=== PATIENT | female | born 1935 | race Caucasian/White ===

== ENCOUNTER 2018-11-05 14:36 | Inpatient (IN) | payer MEDICARE, BC ==
[~2018-11-05] VITALS: Ht 152.4 cm; Wt 47.2 kg
[~2018-11-05 14:36] MED LIST: ALBU6.7H IH; BUDE10.2 IH; ESOM40CA PO
[2018-11-05] MEDS ORDERED: ALBUTEROL SULFATE 8 GM HFA.AER.AD IH SCH (17:30)
[2018-11-05] MEDS ORDERED: BISACODYL 10 MG SUPP.RECT RC PRN (17:45)
[2018-11-05] MEDS ORDERED: SENNOSIDES 1 TABLET PO PRN ×2 (17:45→20:00)
[2018-11-05] MEDS ORDERED: MIRALAX 17 GM POWD.PACK PO PRN ×2 (17:45→20:00)
[2018-11-05] MEDS ORDERED: ACETAMINOPHEN 325 MG TABLET PO PRN ×2 (17:45→20:00)
[2018-11-05] MEDS ORDERED: ONDANSETRON 4 MG/2 ML VIAL IM PRN (17:45)
[2018-11-05] MEDS ORDERED: BENZONATATE 100 MG CAPSULE PO SCH (17:45)
[2018-11-05] MEDS ORDERED: GUAIFENESIN SUGAR FREE 100 MG/5 ML UDC PO PRN ×2 (17:45→20:30)
[2018-11-05] MEDS ORDERED: BENZ200C53 PO (18:40)
[2018-11-05] MEDS ORDERED: ACET-2154 PO (18:40)
[2018-11-05] MEDS ORDERED: DOCU100C36 PO (18:40)
[2018-11-05] MEDS ORDERED: BISA10SU61 RC (18:40)
[2018-11-05] MEDS ORDERED: PANT40TA4 PO (19:06)
[2018-11-05] MEDS ORDERED: OXYB10TA PO (19:06)
[2018-11-05] MEDS ORDERED: SERT50TA PO (19:06)
[2018-11-05] MEDS ORDERED: HEPA500034 SUBCUT (19:06)
[2018-11-05] MEDS ORDERED: LEVO50TA8 PO (19:06)
[2018-11-05] MEDS ORDERED: GUAI-671 PO (19:06)
[2018-11-05] MEDS ORDERED: SENN-18 PO (19:06)
[2018-11-05] MEDS ORDERED: POLY17PO4 PO (19:06)
[2018-11-05] MEDS ORDERED: ONDA4TAB5 IM (19:06)
[2018-11-05 19:30] VITALS: BP 148/67
[2018-11-05] MEDS ORDERED: ONDANSETRON HCL 4 MG TABLET PO SCH (20:00)
[2018-11-05] MEDS ORDERED: BENZONATATE 100 MG CAPSULE PO PRN (20:00)
[2018-11-05] MEDS ORDERED: BISACODYL 10 MG SUPP.RECT RC SCH (20:00)
[2018-11-05] MEDS ORDERED: ONDA4VIA52 IV (20:10)
[2018-11-05] MEDS ORDERED: ONDANSETRON 4 MG/2 ML VIAL IV PRN (20:15)
[2018-11-05] MEDS ORDERED: GUAIFENESIN/CODEINE 5 ML LIQUID UDC PO PRN (20:15)
[2018-11-05] MEDS ORDERED: GUAI100S9 PO (20:18)
[2018-11-05] MEDS: HEPARIN SODIUM,PORCINE 5,000 UNITS/ML VIAL SQ SCH (20:46)
[2018-11-05] MEDS ORDERED: HEPARIN SODIUM,PORCINE/PF 100 UNIT/ML, 5ML SYR XX SCH (21:00)
[2018-11-05 21:10] VITALS: BP 145/58
[2018-11-06] MEDS: LEVOTHYROXINE SODIUM 50 MCG TABLET PO SCH (06:14)
[2018-11-06 06:59] VITALS: BP 146/67
[2018-11-06] MEDS ORDERED: PANTOPRAZOLE SODIUM 40 MG TABLET.DR PO SCH (07:00)
[2018-11-06] MEDS ORDERED: LEVOTHYROXINE SODIUM 50 MCG TABLET PO SCH (07:00)
[2018-11-06 08:04] VITALS: BP 150/49
[2018-11-06] MEDS ORDERED: DOCUSATE SODIUM 100 MG CAPSULE PO SCH (09:00)
[2018-11-06] MEDS ORDERED: SERTRALINE HCL 100 MG TABLET PO SCH (09:00)
[2018-11-06] MEDS ORDERED: Medication Not On Formulary EA (Esomeprazole Mag Trihydrate (Nexium) 40 MG) PO SCH (09:00)
[2018-11-06] MEDS ORDERED: OXYBUTYNIN XL 5 MG TABSR PO SCH (09:00)
[2018-11-06] MEDS ORDERED: SERTRALINE HCL 50 MG TABLET PO SCH (09:00)
[2018-11-06] MEDS: PANTOPRAZOLE SODIUM 40 MG TABLET.DR PO SCH (09:54)
[2018-11-06] MEDS: OXYBUTYNIN XL 5 MG TABSR PO SCH (09:54)
[2018-11-06] MEDS: SERTRALINE HCL 100 MG TABLET PO SCH (09:55)
[2018-11-06] MEDS: HEPARIN SODIUM,PORCINE 5,000 UNITS/ML VIAL SQ SCH ×2 (10:01→20:58)
[2018-11-06] MEDS: BENZONATATE 100 MG CAPSULE PO SCH ×3 (10:18→21:25)
[2018-11-06] MEDS: LIDOCAINE VISCUS 2% 15 ML UDC MM SCH ×3 (10:22→21:26)
[2018-11-06 18:05] VITALS: BP 146/51
[2018-11-06 21:15] VITALS: BP 134/42
[2018-11-07 05:00] VITALS: BP 160/54
[2018-11-07] MEDS: BENZONATATE 100 MG CAPSULE PO SCH ×3 (06:17→21:23)
[2018-11-07] MEDS: LIDOCAINE VISCUS 2% 15 ML UDC MM SCH ×3 (06:17→21:23)
[2018-11-07] MEDS: LEVOTHYROXINE SODIUM 50 MCG TABLET PO SCH (06:17)
[2018-11-07 07:47] VITALS: BP 163/58
[2018-11-07] MEDS: PANTOPRAZOLE SODIUM 40 MG TABLET.DR PO SCH (08:05)
[2018-11-07] MEDS: OXYBUTYNIN XL 5 MG TABSR PO SCH (08:07)
[2018-11-07] MEDS: SERTRALINE HCL 100 MG TABLET PO SCH (08:07)
[2018-11-07] MEDS: HEPARIN SODIUM,PORCINE 5,000 UNITS/ML VIAL SQ SCH ×2 (08:16→20:46)
[2018-11-07 16:26] VITALS: BP 147/50
[2018-11-07 19:58] VITALS: BP 126/60
[2018-11-07] MEDS ORDERED: LIDOCAINE VISCUS 2% 15 ML UDC ONE (20:43)
[2018-11-08 04:50] VITALS: BP 170/73
[2018-11-08] MEDS: LIDOCAINE VISCUS 2% 15 ML UDC MM SCH ×3 (06:00→21:01)
[2018-11-08] MEDS: BENZONATATE 100 MG CAPSULE PO SCH ×3 (06:23→21:01)
[2018-11-08] MEDS: LEVOTHYROXINE SODIUM 50 MCG TABLET PO SCH (06:23)
[2018-11-08] MEDS: PANTOPRAZOLE SODIUM 40 MG TABLET.DR PO SCH (06:25)
[2018-11-08] MEDS: hydrALAZINE HCL 25 MG TABLET PO PRN (06:56)
[2018-11-08 07:53] LABS: BASOPHILS % (AUTO) 0.6 % (0.0-2.0); EOSINOPHILS # (AUTO) 0.3 K/uL (0.0-0.7); HEMATOCRIT 31.3 % (31.2-41.9); HEMOGLOBIN 10.2 g/dL (10.9-14.3); LYMPHOCYTES % (AUTO) 16.8 % (20.5-51.5); MEAN CORPUSCULAR HEMOGLOBIN 26.6 uug (24.7-32.8); MEAN CORPUSCULAR HGB CONC 33 g/dL (32.3-35.6); MEAN CORPUSCULAR VOLUME 81.6 fL (75.5-95.3); MONOCYTES # (AUTO) 0.6 K/uL (2.0-10.0); MONOCYTES % (AUTO) 9.7 % (0.0-11.0); NEUTROPHILS # (AUTO) 3.9 K/uL (1.8-8.9); NEUTROPHILS % (AUTO) 67.9 % (38.5-71.5); PLATELET COUNT (AUTO) 282 K/uL (179-408); RED BLOOD CELL COUNT(AUTO) 3.84 MIL/uL (3.63-4.92); WHITE BLOOD COUNT (AUTO) 5.8 K/uL (3.8-11.8)
[2018-11-08 08:00] VITALS: BP 138/73
[2018-11-08 08:13] LABS: CARBON DIOXIDE 26 mmol/L (21-32); CHLORIDE 108 mmol/L (98-107); CREATININE 0.6 mg/dL (0.6-1.3); GLUCOSE 104 mg/dL (74-106); MAGNESIUM 2.1 mg/dL (1.8-2.4); PHOSPHOROUS 3.4 mg/dL (2.5-4.9); UREA NITROGEN, BLOOD 18 mg/dL (7-18)
[2018-11-08] MEDS: HEPARIN SODIUM,PORCINE 5,000 UNITS/ML VIAL SQ SCH ×2 (08:59→20:58)
[2018-11-08] MEDS: SERTRALINE HCL 100 MG TABLET PO SCH (09:30)
[2018-11-08] MEDS: OXYBUTYNIN XL 5 MG TABSR PO SCH (09:30)
[2018-11-08 16:15] VITALS: BP 132/63
[2018-11-08 21:20] VITALS: BP 111/54
[2018-11-09 06:09] VITALS: BP 160/76
[2018-11-09] MEDS: hydrALAZINE HCL 25 MG TABLET PO PRN (06:24)
[2018-11-09] MEDS: BENZONATATE 100 MG CAPSULE PO SCH ×3 (06:24→21:07)
[2018-11-09] MEDS: LIDOCAINE VISCUS 2% 15 ML UDC MM SCH ×2 (06:24→14:45)
[2018-11-09] MEDS: LEVOTHYROXINE SODIUM 50 MCG TABLET PO SCH (06:24)
[2018-11-09 07:30] VITALS: BP 109/44
[2018-11-09] MEDS: HEPARIN SODIUM,PORCINE 5,000 UNITS/ML VIAL SQ SCH ×2 (08:30→21:12)
[2018-11-09] MEDS: SERTRALINE HCL 100 MG TABLET PO SCH (08:33)
[2018-11-09] MEDS: PANTOPRAZOLE SODIUM 40 MG TABLET.DR PO SCH (08:33)
[2018-11-09] MEDS: OXYBUTYNIN XL 5 MG TABSR PO SCH (08:34)
[2018-11-09] MEDS: ARIPIPRAZOLE 2 MG TABLET PO SCH (11:59)
[2018-11-09 17:06] VITALS: BP 115/49
[2018-11-09] MEDS ORDERED: LIDOCAINE VISCUS 2% 15 ML UDC MM PRN (19:45)
[2018-11-09 20:23] VITALS: BP 130/54
[2018-11-10] MEDS: BENZONATATE 100 MG CAPSULE PO SCH ×3 (05:57→21:00)
[2018-11-10] MEDS: PANTOPRAZOLE SODIUM 40 MG TABLET.DR PO SCH (06:00)
[2018-11-10] MEDS: LEVOTHYROXINE SODIUM 50 MCG TABLET PO SCH (06:00)
[2018-11-10 06:29] VITALS: BP 133/58
[2018-11-10 08:37] VITALS: BP 150/61
[2018-11-10] MEDS: SERTRALINE HCL 100 MG TABLET PO SCH (08:48)
[2018-11-10] MEDS: OXYBUTYNIN XL 5 MG TABSR PO SCH (08:48)
[2018-11-10] MEDS: ARIPIPRAZOLE 2 MG TABLET PO SCH (08:48)
[2018-11-10] MEDS: HEPARIN SODIUM,PORCINE 5,000 UNITS/ML VIAL SQ SCH ×2 (08:56→20:51)
[2018-11-10 16:54] VITALS: BP 114/41
[2018-11-10 20:43] VITALS: BP 135/56
[2018-11-11] MEDS: LEVOTHYROXINE SODIUM 50 MCG TABLET PO SCH (06:02)
[2018-11-11] MEDS: BENZONATATE 100 MG CAPSULE PO SCH ×3 (06:02→21:31)
[2018-11-11] MEDS: PANTOPRAZOLE SODIUM 40 MG TABLET.DR PO SCH (06:03)
[2018-11-11 06:30] VITALS: BP 141/70
[2018-11-11 07:54] VITALS: BP 146/52
[2018-11-11 08:14] LABS: BASOPHILS % (AUTO) 0.8 % (0.0-2.0); EOSINOPHILS # (AUTO) 0.2 K/uL (0.0-0.7); HEMATOCRIT 32.2 % (31.2-41.9); HEMOGLOBIN 10.4 g/dL (10.9-14.3); LYMPHOCYTES # (AUTO) 1.1 K/uL (20.0-40.0); LYMPHOCYTES % (AUTO) 20.3 % (20.5-51.5); MEAN CORPUSCULAR HEMOGLOBIN 26.4 uug (24.7-32.8); MEAN CORPUSCULAR HGB CONC 32 g/dL (32.3-35.6); MEAN CORPUSCULAR VOLUME 81.9 fL (75.5-95.3); MONOCYTES # (AUTO) 0.4 K/uL (2.0-10.0); MONOCYTES % (AUTO) 7.2 % (0.0-11.0); NEUTROPHILS # (AUTO) 3.6 K/uL (1.8-8.9); NEUTROPHILS % (AUTO) 68.7 % (38.5-71.5); PLATELET COUNT (AUTO) 319 K/uL (179-408); RED BLOOD CELL COUNT(AUTO) 3.93 MIL/uL (3.63-4.92); WHITE BLOOD COUNT (AUTO) 5.2 K/uL (3.8-11.8)
[2018-11-11 08:23] LABS: CARBON DIOXIDE 28 mmol/L (21-32); CHLORIDE 107 mmol/L (98-107); CREATININE 0.7 mg/dL (0.6-1.3); GLUCOSE 107 mg/dL (74-106); POTASSIUM 4.4 mmol/L (3.5-5.1); UREA NITROGEN, BLOOD 20 mg/dL (7-18)
[2018-11-11] MEDS: OXYBUTYNIN XL 5 MG TABSR PO SCH (08:36)
[2018-11-11] MEDS: SERTRALINE HCL 100 MG TABLET PO SCH (08:36)
[2018-11-11] MEDS: ARIPIPRAZOLE 2 MG TABLET PO SCH (08:36)
[2018-11-11] MEDS: HEPARIN SODIUM,PORCINE 5,000 UNITS/ML VIAL SQ SCH ×2 (08:37→21:31)
[2018-11-11 16:23] VITALS: BP 104/33
[2018-11-11 20:37] VITALS: BP 142/61
[2018-11-12 05:58] VITALS: BP 140/66
[2018-11-12] MEDS: PANTOPRAZOLE SODIUM 40 MG TABLET.DR PO SCH (06:24)
[2018-11-12] MEDS: BENZONATATE 100 MG CAPSULE PO SCH ×3 (06:24→21:18)
[2018-11-12] MEDS: LEVOTHYROXINE SODIUM 50 MCG TABLET PO SCH (06:24)
[2018-11-12 07:30] VITALS: BP 139/55
[2018-11-12] MEDS: HEPARIN SODIUM,PORCINE 5,000 UNITS/ML VIAL SQ SCH ×2 (09:18→20:24)
[2018-11-12] MEDS: SERTRALINE HCL 100 MG TABLET PO SCH (09:21)
[2018-11-12] MEDS: ARIPIPRAZOLE 2 MG TABLET PO SCH (09:21)
[2018-11-12] MEDS: OXYBUTYNIN XL 5 MG TABSR PO SCH (09:21)
[2018-11-12 15:00] VITALS: BP 149/52
[2018-11-12 19:39] VITALS: BP 110/41
[2018-11-13 05:42] VITALS: BP 132/70
[2018-11-13] MEDS: BENZONATATE 100 MG CAPSULE PO SCH ×3 (05:43→21:29)
[2018-11-13] MEDS: LEVOTHYROXINE SODIUM 50 MCG TABLET PO SCH (06:20)
[2018-11-13] MEDS: PANTOPRAZOLE SODIUM 40 MG TABLET.DR PO SCH (06:21)
[2018-11-13 08:00] VITALS: BP 148/64
[2018-11-13] MEDS: SERTRALINE HCL 100 MG TABLET PO SCH (08:53)
[2018-11-13] MEDS: ARIPIPRAZOLE 2 MG TABLET PO SCH (08:53)
[2018-11-13] MEDS: OXYBUTYNIN XL 5 MG TABSR PO SCH (08:54)
[2018-11-13] MEDS: HEPARIN SODIUM,PORCINE 5,000 UNITS/ML VIAL SQ SCH ×2 (09:00→20:12)
[2018-11-13 17:10] VITALS: BP 95/37
[2018-11-13 20:00] VITALS: BP 124/51
[2018-11-14 06:20] VITALS: BP 125/63
[2018-11-14] MEDS: PANTOPRAZOLE SODIUM 40 MG TABLET.DR PO SCH (06:20)
[2018-11-14] MEDS: BENZONATATE 100 MG CAPSULE PO SCH ×3 (06:20→21:26)
[2018-11-14] MEDS: LEVOTHYROXINE SODIUM 50 MCG TABLET PO SCH (06:20)
[2018-11-14] MEDS: ARIPIPRAZOLE 2 MG TABLET PO SCH (08:50)
[2018-11-14] MEDS: SERTRALINE HCL 100 MG TABLET PO SCH (08:50)
[2018-11-14] MEDS: OXYBUTYNIN XL 5 MG TABSR PO SCH (08:51)
[2018-11-14] MEDS: HEPARIN SODIUM,PORCINE 5,000 UNITS/ML VIAL SQ SCH (08:56)
[2018-11-14 09:00] VITALS: BP 143/57
[2018-11-14 20:09] VITALS: BP 113/48
[2018-11-15 05:52] VITALS: BP 137/55
[2018-11-15] MEDS: BENZONATATE 100 MG CAPSULE PO SCH ×2 (06:12→14:44)
[2018-11-15] MEDS: LEVOTHYROXINE SODIUM 50 MCG TABLET PO SCH (06:12)
[2018-11-15] MEDS: PANTOPRAZOLE SODIUM 40 MG TABLET.DR PO SCH (06:12)
[2018-11-15] MEDS: ARIPIPRAZOLE 2 MG TABLET PO SCH (08:30)
[2018-11-15] MEDS: SERTRALINE HCL 100 MG TABLET PO SCH (08:32)
[2018-11-15 08:52] VITALS: BP 125/49
[2018-11-15] MEDS ORDERED: OXYBUTYNIN XL 5 MG TABSR PO SCH (09:00)
[2018-11-15 16:22] VITALS: BP 112/41
== END 2018-11-15 15:30 | disposition home health service (06) | DRG 92 ==
PROVIDERS: ADMIT Physical Medicine & Rehabilitation Pain Medicine; ATTEND Physical Medicine & Rehabilitation Pain Medicine
DX: G92 Toxic encephalopathy (principal); F33.2 Major depressive disorder, recurrent severe without psychotic features; E03.9 Hypothyroidism, unspecified; G20 Parkinson's disease; R62.7 Adult failure to thrive; R47.1 Dysarthria and anarthria; R26.9 Unspecified abnormalities of gait and mobility; D86.0 Sarcoidosis of lung; Z87.440 Personal history of urinary (tract) infections; K59.00 Constipation, unspecified; Z91.81 History of falling; R29.6 Repeated falls; Z79.899 Other long term (current) drug therapy; R35.1 Nocturia; Z88.0 Allergy status to penicillin; Z88.2 Allergy status to sulfonamides
CPT/HCPCS: 36415; 70030-TC; 83735; 84100; 84443; 84480; 85025; 92523; 93005; 97110; 97112; 97116; 97165; 97530; 97535; J1644

== ENCOUNTER 2019-07-19 16:47 | Inpatient (IN) | payer MEDICARE, BC ==
[~2019-07-19] VITALS: Ht 154.9 cm; Wt 52.3 kg
[2019-07-19 17:33] LABS: BASOPHILS % (AUTO) 0.3 % (0.0-2.0); EOSINOPHILS % (AUTO) 0.2 % (0.0-7.0); HEMATOCRIT 32.8 % (31.2-41.9); HEMOGLOBIN 10.9 g/dL (10.9-14.3); LYMPHOCYTES # (AUTO) 0.5 K/uL (20.0-40.0); LYMPHOCYTES % (AUTO) 8.6 % (20.5-51.5); MEAN CORPUSCULAR HEMOGLOBIN 27.3 uug (24.7-32.8); MEAN CORPUSCULAR HGB CONC 33 g/dL (32.3-35.6); MEAN CORPUSCULAR VOLUME 82.5 fL (75.5-95.3); MONOCYTES # (AUTO) 0.5 K/uL (2.0-10.0); NEUTROPHILS # (AUTO) 4.7 K/uL (1.8-8.9); NEUTROPHILS % (AUTO) 81.9 % (38.5-71.5); PLATELET COUNT (AUTO) 133 K/uL (179-408); RED BLOOD CELL COUNT(AUTO) 3.98 MIL/uL (3.63-4.92); WHITE BLOOD COUNT (AUTO) 5.7 K/uL (3.8-11.8)
[2019-07-19 17:35] LABS: POTASSIUM 4.5 mmol/L (3.5-5.1)
[2019-07-19 17:39] LABS: BILIRUBIN,DIRECT 0.1 mg/dL (0.0-0.2); BILIRUBIN,TOTAL 0.3 mg/dL (0.2-1.0); CREATININE 0.9 mg/dL (0.6-1.3); TOTAL PROTEIN, SERUM 7.1 g/dL (6.4-8.2)
--- NOTE | 2019-07-19 17:47 | NUR ---
PT IS IN ROOM #1A. DR OCHOA EVALUATED THE PT.
[2019-07-19] MEDS ORDERED: ACETAMINOPHEN 325 MG TABLET PO ONE (19:00)
[2019-07-19] MEDS ORDERED: OSELTAMIVIR PHOSPHATE 75 MG CAPSULE PO ONE (19:00)
[2019-07-19] MEDS ORDERED: ACETAMINOPHEN ES 500 MG TABLET ONE (19:10)
[2019-07-19] MEDS ORDERED: OSELTAMIVIR PHOSPHATE 75 MG CAPSULE ONE (19:10)
--- NOTE | 2019-07-19 19:17 | NUR ---
REPORT GIVEN TO JEWEL BLOCKER AND SAWYER VLAD DRISCOLL.
--- NOTE | 2019-07-19 20:20 | NUR ---
Pt. admitted to Tele , under care of Dr. Mena Belongs List completed
[2019-07-19] MEDS ORDERED: BISACODYL 10 MG SUPP.RECT RC SCH (20:30)
[2019-07-19] MEDS ORDERED: ACETAMINOPHEN 325 MG TABLET PO PRN (20:30)
[2019-07-19] MEDS ORDERED: ONDANSETRON 4 MG/2 ML VIAL IV PRN (20:30)
[2019-07-19 20:50] VITALS: BP 125/49
--- NOTE | 2019-07-19 20:50 | NUR ---
RECEIVED PT FROM ER VIA [facility].UNDER THE CARE OF DR. BOYKIN.DX: FLU. PT IN NO ACUTE DISTRESS. IV INTACT. AND DAUGHTER AT BEDSIDE. ADMISSION PROCESS AND CARE PLAN INITIATED. BELONGING LIST DONE. SAFETY AND COMFORT PROVIDED. WILL CONTINUE TO MONITOR.
[2019-07-19] MEDS ORDERED: ACETAMINOPHEN ES 500 MG TABLET PO ONE (21:00)
[2019-07-19] MEDS: IV 1/2NS 1000 ML 1,000 ML IV PRN (21:34)
[2019-07-19] MEDS: FAMOTIDINE 20 MG TABLET PO SCH (21:41)
[2019-07-19] MEDS: MIRTAZAPINE 15 MG TABLET PO SCH (21:41)
[2019-07-20 00:05] VITALS: BP 114/49
[2019-07-20 03:57] VITALS: BP 109/43
[2019-07-20] MEDS: LEVOTHYROXINE SODIUM 50 MCG TABLET PO SCH (06:39)
--- NOTE | 2019-07-20 06:44 | NUR ---
PT SLEPT COMFORTABLE. PT IN NO ACUTE DISTRESS. IV INTACT. PRESCRIBED MEDICATION GIVEN AND PT TOLERATED IT WELL. PT ASSISTED TO THE BATHROOM . SAFETY AND COMFORT PROVIDED. ALL NEEDS ARE MET. WILL ENDORSE TO INCOMING NURSE FOR CONTINUITY OF CARE.
[2019-07-20 07:07] LABS: BASOPHILS % (AUTO) 0.2 % (0.0-2.0); EOSINOPHILS % (AUTO) 0.5 % (0.0-7.0); HEMATOCRIT 31.9 % (31.2-41.9); HEMOGLOBIN 10.6 g/dL (10.9-14.3); LYMPHOCYTES # (AUTO) 0.7 K/uL (20.0-40.0); LYMPHOCYTES % (AUTO) 11.7 % (20.5-51.5); MEAN CORPUSCULAR HEMOGLOBIN 27.5 uug (24.7-32.8); MEAN CORPUSCULAR HGB CONC 33 g/dL (32.3-35.6); MEAN CORPUSCULAR VOLUME 82.7 fL (75.5-95.3); MONOCYTES # (AUTO) 0.5 K/uL (2.0-10.0); MONOCYTES % (AUTO) 9.5 % (0.0-11.0); NEUTROPHILS # (AUTO) 4.5 K/uL (1.8-8.9); NEUTROPHILS % (AUTO) 78.1 % (38.5-71.5); PLATELET COUNT (AUTO) 116 K/uL (179-408); RED BLOOD CELL COUNT(AUTO) 3.86 MIL/uL (3.63-4.92); WHITE BLOOD COUNT (AUTO) 5.7 K/uL (3.8-11.8)
[2019-07-20] MEDS ORDERED: BISACODYL 10 MG SUPP.RECT RC PRN (07:45)
[2019-07-20 08:25] LABS: CREATININE 0.8 mg/dL (0.6-1.3); MAGNESIUM 2.1 mg/dL (1.8-2.4); TOTAL PROTEIN, SERUM 6.7 g/dL (6.4-8.2)
[2019-07-20 08:56] LABS: BILIRUBIN,TOTAL 0.3 mg/dL (0.2-1.0); POTASSIUM 4.1 mmol/L (3.5-5.1)
[2019-07-20] MEDS: SERTRALINE HCL 100 MG TABLET PO SCH (10:26)
[2019-07-20] MEDS: OSELTAMIVIR PHOSPHATE 75 MG CAPSULE PO SCH ×2 (10:26→21:28)
[2019-07-20] MEDS: DOCUSATE SODIUM 100 MG CAPSULE PO SCH ×2 (10:26→21:28)
[2019-07-20 11:38] VITALS: BP 118/55
[2019-07-20 15:27] VITALS: BP 107/56
--- NOTE | 2019-07-20 16:00 | NUR ---
SPOKE TO DR. BOYKIN TO CALL PATIENT'S DAUGHTER SABRINA [phone], REGARDING PATIENT CONDITION
[2019-07-20] MEDS ORDERED: ALBUTEROL SULFATE 2.5 MG/3 ML NEBU NEB PRN (16:45)
[2019-07-20] MEDS: AZITHROMYCIN IV 500 MG in IV DEXTROSE 5% 250 ML IV SCH (17:00)
[2019-07-20] MEDS: IV 1/2NS 1000 ML 1,000 ML IV PRN (18:15)
--- NOTE | 2019-07-20 18:56 | NUR ---
PATIENT IN BED KEPT CLEAN AND DRY AT ALL TIMES, NO SOB NOTED AND NO PAIN NOTED AT THIS TIME. CALL LIGHT WITHIN REACH. WILL CONTINUE TO MONITOR.
--- NOTE | 2019-07-20 19:30 | NUR ---
RECEIVED PT AWAKE,ALERT AND ORIENTEDX4. PT IV INTACT. FAMILY AT BEDSIDE. SAFETY AND COMFORT PROVIDED. WILL CONTINUE TO MONITOR.
[2019-07-20 21:03] VITALS: BP 127/45
[2019-07-20] MEDS: MIRTAZAPINE 15 MG TABLET PO SCH (21:28)
[2019-07-20] MEDS: FAMOTIDINE 20 MG TABLET PO SCH (21:28)
[2019-07-20 22:27] LABS: *BILIRUBIN,URIN NEGATIVE (NEGATIVE); *BLOOD, URINE NEGATIVE (NEGATIVE); *COLOR,URINE YELLOW (YELLOW); *KETONES,URINE NEGATIVE (NEGATIVE); *UROBILINOGEN,URINE 0.2 E.U./dl (NORMAL); LEUKOCYTE ESTERASE ,URINE NEGATIVE (NEGATIVE); NITRITE, URINE POSITIVE (NEGATIVE); PH,URINE 5.5 (5.0-8.0); UGLUCOSE NEGATIVE (NEGATIVE)
[2019-07-20 22:40] LABS: *CLARITY,URINE HAZY (CLEAR)
[2019-07-20 23:31] LABS: BACTERIA,URINE MANY /HPF (NONE SEEN); RBC,URINE 0-3 /HPF (0-3); SQUAMOUS EPITHELIAL CELL,UR FEW /HPF (NONE SEEN)
[2019-07-21 04:18] VITALS: BP 145/59
--- NOTE | 2019-07-21 06:20 | NUR ---
PT SLEPT INTERMITTENTLY. PRESCRIBED MEDICATION GIVEN AND PT TOLERATED IT WELL. SAFETY AND COMFORT PROVIDED. WILL ENDORSE TO INCOMING NURSE FOR CONTINUITY OF CARE.
[2019-07-21] MEDS: LEVOTHYROXINE SODIUM 50 MCG TABLET PO SCH (06:37)
[2019-07-21 07:03] LABS: BASOPHILS % (AUTO) 0.5 % (0.0-2.0); EOSINOPHILS % (AUTO) 0.4 % (0.0-7.0); HEMATOCRIT 33.6 % (31.2-41.9); HEMOGLOBIN 11.2 g/dL (10.9-14.3); LYMPHOCYTES # (AUTO) 0.8 K/uL (20.0-40.0); LYMPHOCYTES % (AUTO) 18.1 % (20.5-51.5); MEAN CORPUSCULAR HEMOGLOBIN 27.5 uug (24.7-32.8); MEAN CORPUSCULAR HGB CONC 33 g/dL (32.3-35.6); MEAN CORPUSCULAR VOLUME 82.7 fL (75.5-95.3); MONOCYTES # (AUTO) 0.5 K/uL (2.0-10.0); MONOCYTES % (AUTO) 10.1 % (0.0-11.0); NEUTROPHILS # (AUTO) 3.2 K/uL (1.8-8.9); NEUTROPHILS % (AUTO) 70.9 % (38.5-71.5); PLATELET COUNT (AUTO) 122 K/uL (179-408); RED BLOOD CELL COUNT(AUTO) 4.06 MIL/uL (3.63-4.92); WHITE BLOOD COUNT (AUTO) 4.5 K/uL (3.8-11.8)
[2019-07-21 07:21] LABS: BILIRUBIN,TOTAL 0.3 mg/dL (0.2-1.0); CREATININE 0.7 mg/dL (0.6-1.3); PHOSPHOROUS 3.1 mg/dL (2.5-4.9); POTASSIUM 4.2 mmol/L (3.5-5.1); TOTAL PROTEIN, SERUM 6.7 g/dL (6.4-8.2)
[2019-07-21 07:26] LABS: THYROID STIMULATING HORMONE 1.089 mIU/mL (0.358-3.740)
[2019-07-21] MEDS: SERTRALINE HCL 100 MG TABLET PO SCH (08:01)
[2019-07-21] MEDS: DOCUSATE SODIUM 100 MG CAPSULE PO SCH ×2 (08:01→20:39)
[2019-07-21] MEDS: OSELTAMIVIR PHOSPHATE 75 MG CAPSULE PO SCH ×2 (08:01→20:39)
[2019-07-21] MEDS: IV 1/2NS 1000 ML 1,000 ML IV PRN (11:00)
[2019-07-21 11:49] VITALS: BP 139/50
[2019-07-21 15:33] VITALS: BP 111/48
[2019-07-21] MEDS: AZITHROMYCIN IV 500 MG in IV DEXTROSE 5% 250 ML IV SCH (16:06)
[2019-07-21 16:53] LABS: *BILIRUBIN,URIN NEGATIVE (NEGATIVE); *BLOOD, URINE NEGATIVE (NEGATIVE); *CLARITY,URINE CLEAR (CLEAR); *COLOR,URINE YELLOW (YELLOW); *KETONES,URINE NEGATIVE (NEGATIVE); *UROBILINOGEN,URINE 0.2 E.U./dl (NORMAL); LEUKOCYTE ESTERASE ,URINE NEGATIVE (NEGATIVE); NITRITE, URINE POSITIVE (NEGATIVE); PH,URINE 5.5 (5.0-8.0); UGLUCOSE NEGATIVE (NEGATIVE)
[2019-07-21 16:58] LABS: RBC,URINE 0-3 /HPF (0-3); WBC,URINE 0-3 /HPF (0-3)
[2019-07-21 16:59] LABS: BACTERIA,URINE MANY /HPF (NONE SEEN); SQUAMOUS EPITHELIAL CELL,UR FEW /HPF (NONE SEEN)
--- NOTE | 2019-07-21 19:30 | NUR ---
Received patient awake and alert up in chair, A/ox3. Daughter is at bedside. No signs of acute distress noted. no complaints of pain or SOB. Vitals are WNL. IVF running on the left forearm, no s/s of infection or infiltration noted. Patient on droplet precaution for influenza. Safety measures initiated. Bed is low and locked, call light within reach. Will continue to monitor.
[2019-07-21 20:00] VITALS: BP 133/52
[2019-07-21] MEDS: MIRTAZAPINE 15 MG TABLET PO SCH (20:39)
[2019-07-21] MEDS: FAMOTIDINE 20 MG TABLET PO SCH (20:39)
[2019-07-22 04:54] VITALS: BP 115/45
[2019-07-22] MEDS: IV 1/2NS 1000 ML 1,000 ML IV PRN ×2 (04:57→20:52)
--- NOTE | 2019-07-22 06:09 | NUR ---
Patient slept well throughout the night. Vitals WNL. No fevers. Medication given as ordered and tolerated well. IVF running on the left forearm, no s/s of infection or infiltration noted. Safety measures given. Will endorse to next shift.
[2019-07-22] MEDS: LEVOTHYROXINE SODIUM 50 MCG TABLET PO SCH (06:34)
[2019-07-22] MEDS: SERTRALINE HCL 100 MG TABLET PO SCH (08:00)
[2019-07-22] MEDS: DOCUSATE SODIUM 100 MG CAPSULE PO SCH ×2 (08:00→20:09)
[2019-07-22] MEDS: OSELTAMIVIR PHOSPHATE 75 MG CAPSULE PO SCH ×2 (08:05→20:06)
[2019-07-22 11:40] VITALS: BP 120/51
[2019-07-22 15:39] VITALS: BP 126/67
[2019-07-22] MEDS ORDERED: AZITHROMYCIN 250 MG TABLET PO SCH (17:00)
[2019-07-22 19:44] VITALS: BP 133/49
[2019-07-22] MEDS: FAMOTIDINE 20 MG TABLET PO SCH (20:06)
[2019-07-22] MEDS: MIRTAZAPINE 15 MG TABLET PO SCH (20:06)
[2019-07-23 04:31] VITALS: BP 136/69
[2019-07-23] MEDS ORDERED: LEVOTHYROXINE SODIUM 75 MCG TABLET PO SCH (07:00)
[2019-07-23] MEDS: DOCUSATE SODIUM 100 MG CAPSULE PO SCH (09:00)
[2019-07-23] MEDS: SERTRALINE HCL 100 MG TABLET PO SCH (09:41)
[2019-07-23] MEDS: OSELTAMIVIR PHOSPHATE 75 MG CAPSULE PO SCH (09:41)
[2019-07-23 11:30] VITALS: BP 149/54
[2019-07-23] MEDS: IV 1/2NS 1000 ML 1,000 ML IV PRN (12:05)
--- NOTE | 2019-07-23 14:07 | NUR ---
PATIENT DISCHARGED TO HOME-SELF CARE. DISCHARGE INSTRUCTIONS WENT OVER WITH PATIENT AND . RX CALLED IN TO [facility] BY DR. HOPPER. [facility] LIST VENT OVER WITH PATIENT AND SIGNED. PATIENT LEFT VIA WC TO [employer] CAR OF HER . PATIENT LEFT IN STABLE CONDITION. IV TAKEN OUT, ARM BAND TAKEN OFF. Addendum: 07/23/19 at 1412 by MELISSA KEENE RN RIGHT WRIST SKIN ABRASION INTACT AND HEALING WELL. PATIENT REFUSED PICTURE TO BE TAKEN.
== END 2019-07-23 14:07 | disposition home or self-care (01) | DRG 194 ==
LOC: ER 16:48 → TELE3 20:05 → MEDSURG3 07-20 11:00
PROVIDERS: ADMIT Internal Medicine; ATTEND Internal Medicine
DX: J10.1 Influenza due to other identified influenza virus with other respiratory manifestations (principal); R04.2 Hemoptysis; R47.01 Aphasia; N39.0 Urinary tract infection, site not specified; D86.0 Sarcoidosis of lung; J47.9 Bronchiectasis, uncomplicated; Z88.0 Allergy status to penicillin; K21.9 Gastro-esophageal reflux disease without esophagitis; E03.9 Hypothyroidism, unspecified; Z88.2 Allergy status to sulfonamides; Z90.710 Acquired absence of both cervix and uterus; F32.9 Major depressive disorder, single episode, unspecified; Z87.01 Personal history of pneumonia (recurrent); Z87.891 Personal history of nicotine dependence; D64.9 Anemia, unspecified; I95.1 Orthostatic hypotension; G62.9 Polyneuropathy, unspecified; F03.90 Unspecified dementia, unspecified severity, without behavioral disturbance, psychotic disturbance, mood disturbance, and anxiety; I70.0 Atherosclerosis of aorta
CPT/HCPCS: 36415; 70030-TC; 70450; 71045; 71250; 73502; 83605; 83735; 84100; 84443; 85025; 85730; 86592; 87040; 87086; 87400; 93005; A4663; A9150; G0378; J0456; J3490; J7060; Q0144

== ENCOUNTER 2021-11-18 15:46 | Inpatient (IN) | payer MEDICARE, BC ==
[~2021-11-18] VITALS: Ht 154.9 cm; Wt 49.2 kg
[~2021-11-18 15:46] MED LIST changes: -ALBU6.7H IH; +BISA10SU61 RC; -BUDE10.2 IH; -ESOM40CA PO; +FAMO20TA8 PO; +LEVO500T2 PO; +LEVO50TA8 PO; +MIRT-93 PO; +OMEP20TA20 PO; +SERT100T PO
--- NOTE | 2021-11-18 16:00 | NUR ---
at bedside pt's exam in progresss.
[2021-11-18 16:46] LABS: HEMATOCRIT 35.8 % (31.2-41.9); MEAN CORPUSCULAR HEMOGLOBIN 28.3 uug (24.7-32.8); MEAN CORPUSCULAR VOLUME 86.4 fL (75.5-95.3); PLATELET COUNT (AUTO) 162 K/uL (179-408)
[2021-11-18 17:02] LABS: ALANINE AMINOTRANSFERASE 14 U/L (14-59); ALKALINE PHOSPHATASE 47 U/L (50-136); ASPARTATE AMINOTRANSFERASE 11 U/L (15-37); BILIRUBIN,DIRECT 0.1 mg/dL (0.0-0.2); BILIRUBIN,TOTAL 0.4 mg/dL (0.2-1.0); CARBON DIOXIDE 30 mmol/L (21-32); CHLORIDE 102 mmol/L (98-107); CREATININE 0.9 mg/dL (0.6-1.3); GLUCOSE 111 mg/dL (74-106); LIPASE 53 U/L (73-393); POTASSIUM 4.1 mmol/L (3.5-5.1); TOTAL PROTEIN, SERUM 7.2 g/dL (6.4-8.2); UREA NITROGEN, BLOOD 31 mg/dL (7-18)
--- NOTE | 2021-11-18 17:23 | NUR ---
Patient assisted with diaper changed pt's daughter at bedside.
[2021-11-18] MEDS ORDERED: MULT-594 PO (18:39)
[2021-11-18] MEDS ORDERED: LEVO150T8 PO (18:39)
[2021-11-18] MEDS ORDERED: FERR325T28 PO ×2 (18:39)
[2021-11-18] MEDS ORDERED: BUPR-96 PO (18:39)
[2021-11-18] MEDS ORDERED: CARBIDOPA-LEVO PO (18:39)
[2021-11-18] MEDS ORDERED: FAMO40TA7 PO (18:39)
[2021-11-18] MEDS ORDERED: ACET-73 PO ×2 (18:39)
--- NOTE | 2021-11-18 18:43 | NUR ---
pt's daughter at bedside pt[facility] and does not [facility] for MRSA swabb.
--- NOTE | 2021-11-18 20:13 | NUR ---
report given to Dinora CHU, pt to go to room 314.
--- NOTE | 2021-11-18 20:41 | NUR ---
pt [facility]. VLAD Farias at bedside to receive the pt.
--- NOTE | 2021-11-18 20:42 | NUR ---
Received pt from er via [facility]. Dx: Failure to thrive. Under the care of Tim Schroeder DNP. Belonging list done. Family at bedside. Pt in no acute distress. Iv intact. Admission process and care plan initiated. detention assessment done.Safety and comfort provided. Will continue to monitor.
[2021-11-18 20:53] VITALS: BP 142/79
[2021-11-18 23:19] LABS: *BILIRUBIN,URIN NEGATIVE (NEGATIVE); *BLOOD, URINE NEGATIVE (NEGATIVE); *CLARITY,URINE CLEAR (CLEAR); *COLOR,URINE YELLOW (YELLOW); *KETONES,URINE NEGATIVE (NEGATIVE); *UROBILINOGEN,URINE 0.2 E.U./dl (NORMAL); LEUKOCYTE ESTERASE ,URINE NEGATIVE (NEGATIVE); NITRITE, URINE NEGATIVE (NEGATIVE); UGLUCOSE NEGATIVE (NEGATIVE)
[2021-11-19] MEDS ORDERED: REMEDY ESSENTIAL ZINC PASTE 113 GM TP PRN (02:15)
[2021-11-19] MEDS ORDERED: MAGNESIUM HYDROXIDE 30 ML LIQUID UDC PO PRN (02:15)
[2021-11-19] MEDS: IV D5 1/2 NS 1000 ML 1,000 ML IV PRN ×2 (02:33→16:53)
[2021-11-19] MEDS: ZOLPIDEM 5 MG TABLET PO PRN ×2 (02:33→22:26)
[2021-11-19 04:15] VITALS: BP 120/86
--- NOTE | 2021-11-19 05:45 | NUR ---
Pt slept intermittently. Pt in no acute distress. Iv intact. Prescribed medication given and pt tolerated it well.. Pt trying to get out of the bed .Pt needs reorientation. Ambien prn given to pt for sleep. Safety and comfort provided. All needs are met.Will endorse to incoming nurse for continuity of care.
[2021-11-19] MEDS: PANTOPRAZOLE SODIUM 40 MG TABLET.DR PO SCH (06:14)
--- NOTE | 2021-11-19 07:30 | NUR ---
RECEIVED PATIENT IN BED AWAKE ALERT TO SELF WITH CONFUSSION AND DISORIENTATION TOTALLY DEPENDENT ON NURSES FOR ALL ADL MAXIMUM ASSIST GIVEN FOR ALL ADL ALL NEEDS ANTICIPATED AND SATISFIED ON ROOM AIR WITH NO SHORTNESS OF BREATH CALL LIGHTS AND PERSONAL BELONGINGS ARE WITHIN EASY REACH MADE COMFORTABLE WILL CONTINUE TO OBSERVE.
[2021-11-19] MEDS ORDERED: BISACODYL 10 MG SUPP.RECT RC PRN (10:45)
[2021-11-19 11:34] VITALS: BP 146/70
[2021-11-19] MEDS: CARBIDOPA/LEVODOPA 25-100MG TABLET PO SCH ×2 (12:29→16:49)
[2021-11-19] MEDS ORDERED: CARB1TAB21 PO (12:40)
--- NOTE | 2021-11-19 13:54 | NUR ---
IV SITE LEFT ARM INFILTERATED ATTEMPTED MANY TIMES AND VEIN ROLLS AND UNABLE TO REINSERT MD AWARE WITH ORDER TO INSERT A MIDLINE AND NOTED
[2021-11-19 15:58] VITALS: BP 149/75
--- NOTE | 2021-11-19 17:24 | NUR ---
PATIENT SEEN AND EXAMINED BY DR MCFADDEN WITH NEW ORDERS MD SPOKE WITH PATIENTS DAUGHTER ZOE AND SPOUSE WILLIAM AT LENGTH URINE SAMPLE OBTAINED AND SENT TO THE LAB ORDERED.
[2021-11-19] MEDS: ENSURE WITH FIBER 237 ML LIQUID (CHOCOLATE) PO SCH (18:00)
[2021-11-19 18:06] LABS: *BILIRUBIN,URIN NEGATIVE (NEGATIVE); *BLOOD, URINE NEGATIVE (NEGATIVE); *CLARITY,URINE CLEAR (CLEAR); *COLOR,URINE YELLOW (YELLOW); *KETONES,URINE NEGATIVE (NEGATIVE); *UROBILINOGEN,URINE 0.2 E.U./dl (NORMAL); LEUKOCYTE ESTERASE ,URINE NEGATIVE (NEGATIVE); NITRITE, URINE NEGATIVE (NEGATIVE); PH,URINE 6.5 (5.0-8.0); UGLUCOSE NEGATIVE (NEGATIVE)
--- NOTE | 2021-11-19 18:06 | NUR ---
PER PATIENTS DAUGHTER ZOE PATIENT IS NOT ON [facility] ANYMORE SEE LIST PROVIDED TAKES ONLY WELBUTRIN DR MONTOYA NOTIFIED WITH ORDER TO DISCONTINUE AND NOTED
--- NOTE | 2021-11-19 18:07 | NUR ---
TAKEN BY BED TO RADIOLOGY DEPT FOR CT HEAD ORDERED.
[2021-11-19 18:19] LABS: *URINE TOTAL PROTEIN RANDOM 11.9 mg/dL (<150/24HR)
--- NOTE | 2021-11-19 18:46 | NUR ---
BACK INTO ROOM AWAITING FOR RESULTS FAMILY REMAINS AT HER BEDSIDE.
--- NOTE | 2021-11-19 19:48 | NUR ---
Received pt awake, alert and orientedx3. Family at bedside. Pt IV intact. Pt in no acute distress. Safety and comfort provided. Will continue to monitor.
[2021-11-19 20:46] VITALS: BP 164/67
[2021-11-19] MEDS ORDERED: MIRTAZAPINE 15 MG TABLET PO SCH (21:00)
[2021-11-19] MEDS: ACETAMINOPHEN 325 MG TABLET PO PRN (21:19)
[2021-11-19] MEDS: REMEDY ESSENTIAL ZINC PASTE 113 GM TP SCH (21:19)
--- NOTE | 2021-11-19 21:42 | NUR ---
Tylenol 650 mg prn given to pt as per pt request. Pt tolerated it well. Safety and comfort provided. Will continue to monitor.
[2021-11-19 21:50] VITALS: BP 142/60
--- NOTE | 2021-11-19 22:44 | NUR ---
Ambien 5mg given at 2226H for sleep. Pt tolerated it well. Will continue to monitor.
[2021-11-20] MEDS: ACETAMINOPHEN 325 MG TABLET PO PRN ×2 (03:01→20:32)
--- NOTE | 2021-11-20 03:01 | NUR ---
Tylenol 650 mg prn given to pt as per pt request. Will continue to monitor.
--- NOTE | 2021-11-20 06:02 | NUR ---
Pt slept intermittently. Pt Prescribed medication given and pt tolerated it well. Pt have episodes of forgetfulness, trying to get out of the bed, taking off her hospital gown and diaper. Pt needs reorientation. Iv intact. Safety and comfort provided . All needs are met. Will endorse to incoming nurse for continuity of care.
[2021-11-20] MEDS: IV D5 1/2 NS 1000 ML 1,000 ML IV PRN ×2 (06:20→20:51)
[2021-11-20] MEDS: PANTOPRAZOLE SODIUM 40 MG TABLET.DR PO SCH (06:20)
[2021-11-20 06:26] LABS: HEMATOCRIT 35.9 % (31.2-41.9); MEAN CORPUSCULAR HEMOGLOBIN 28.8 uug (24.7-32.8); PLATELET COUNT (AUTO) 158 K/uL (179-408)
[2021-11-20] MEDS ORDERED: LEVOTHYROXINE SODIUM 75 MCG TABLET PO SCH (07:00)
[2021-11-20] MEDS ORDERED: LEVOTHYROXINE SODIUM 150 MCG TABLET PO SCH (07:00)
[2021-11-20 07:28] LABS: THYROID STIMULATING HORMONE 0.067 mIU/mL (0.358-3.740)
[2021-11-20 07:30] LABS: PHOSPHOROUS 3.4 mg/dL (2.5-4.9)
[2021-11-20 07:41] LABS: BILIRUBIN,TOTAL 0.4 mg/dL (0.2-1.0); CREATININE 0.8 mg/dL (0.6-1.3); POTASSIUM 3.7 mmol/L (3.5-5.1); TOTAL PROTEIN, SERUM 6.9 g/dL (6.4-8.2)
[2021-11-20 07:42] LABS: MAGNESIUM 2.4 mg/dL (1.8-2.4)
--- NOTE | 2021-11-20 08:00 | NUR ---
NSG: Received pt lying in bed, awake, alert and oriented x3 but forgetful. Pt IV intact and ivf running well. Pt in no acute distress. Safety and comfort provided. Will continue to monitor.
[2021-11-20] MEDS: ENSURE WITH FIBER 237 ML LIQUID (CHOCOLATE) PO SCH ×3 (08:42→17:42)
[2021-11-20] MEDS: CARBIDOPA/LEVODOPA 25-100MG TABLET PO SCH ×3 (08:43→17:42)
[2021-11-20] MEDS: buPROPion XL 150 MG TAB.SR.24H PO SCH ×2 (08:43→10:31)
[2021-11-20] MEDS: MULTIVITAMINS,THERAPEUTIC TABLET PO SCH ×2 (08:43→10:31)
[2021-11-20] MEDS: REMEDY ESSENTIAL ZINC PASTE 113 GM TP SCH ×2 (08:44→20:32)
[2021-11-20] MEDS ORDERED: SERTRALINE HCL 100 MG TABLET PO SCH (09:00)
[2021-11-20 11:33] VITALS: BP 134/64
[2021-11-20 16:14] VITALS: BP 160/74
--- NOTE | 2021-11-20 16:18 | NUR ---
patient blood pressure is 160/67. hr 88. Dr. hansen made aware via phone. patient family @ bed side.
--- NOTE | 2021-11-20 17:00 | NUR ---
NSG: Dr. hansen stated i well be there @ 6 pm to assess the patient. still waiting for Dr. hansen to come to see the patient.
[2021-11-20] MEDS: ONDANSETRON 4 MG/2 ML VIAL IV PRN (17:10)
--- NOTE | 2021-11-20 18:43 | NUR ---
patient remain calm and cooperative with meds care. no acute distress noted. family @ bedside. assisted with adl's. continue plan of care.
--- NOTE | 2021-11-20 19:30 | NUR ---
Received pt awake, alert and orientedx3. Family at bedside. Dr. Lyon talked with pt family. Pt IV intact. Pt in no acute distress. Safety and comfort provided. Will continue to monitor.
[2021-11-20 20:37] VITALS: BP 136/62
[2021-11-20] MEDS: ZOLPIDEM 5 MG TABLET PO PRN (20:52)
--- NOTE | 2021-11-20 22:06 | NUR ---
Pt restless, and trying to get out of the bed. Reorientation given. Bed alarm on. Dr. Lyon ordered to give Ambien 5mg prn at . . Pt tolerated it well. Will continue to monitor.
[2021-11-21 04:08] VITALS: BP 138/84
--- NOTE | 2021-11-21 05:00 | NUR ---
Pt pulled out her IV . Pt forgetful, and trying to get out of the bed. Pt needs reorientation.
--- NOTE | 2021-11-21 06:04 | NUR ---
Pt slept intermittently. Pt had episodes of forgetfulness taking off her hospital gown, taking off her diaper, trying to get out of the bed and pulling out her IV. Pt new iv site is on right hand 22g. Pt in no acute distress. IV intact and patent. Safety and comfort provided. All needs are met. Vital signs within normal limit. Will endorse to incoming nurse for continuity of care.
[2021-11-21] MEDS: LEVOTHYROXINE SODIUM 112 MCG TABLET PO SCH (06:34)
[2021-11-21] MEDS: PANTOPRAZOLE SODIUM 40 MG TABLET.DR PO SCH (06:34)
[2021-11-21] MEDS ORDERED: IOHEXOL 300MG/ML 100 ML INFUS..BTL ONE (07:22)
[2021-11-21] MEDS ORDERED: SWABABLE VALVE TRANSFER SET EA MC ONE (07:23)
[2021-11-21] MEDS ORDERED: IV NORMAL SALINE 250 ML IV ONE (07:23)
[2021-11-21 07:48] LABS: HEMATOCRIT 35.7 % (31.2-41.9); MEAN CORPUSCULAR HEMOGLOBIN 28.9 uug (24.7-32.8); MEAN CORPUSCULAR VOLUME 85.4 fL (75.5-95.3); PLATELET COUNT (AUTO) 153 K/uL (179-408)
[2021-11-21 07:53] LABS: CREATININE 0.8 mg/dL (0.6-1.3); MAGNESIUM 2.3 mg/dL (1.8-2.4); PHOSPHOROUS 3.3 mg/dL (2.5-4.9); POTASSIUM 3.9 mmol/L (3.5-5.1)
[2021-11-21] MEDS: CARBIDOPA/LEVODOPA 25-100MG TABLET PO SCH ×3 (08:41→17:14)
[2021-11-21] MEDS: ENSURE WITH FIBER 237 ML LIQUID (CHOCOLATE) PO SCH ×3 (08:46→12:27)
[2021-11-21] MEDS: REMEDY ESSENTIAL ZINC PASTE 113 GM TP SCH ×2 (09:00→20:39)
[2021-11-21 11:54] VITALS: BP 154/62
--- NOTE | 2021-11-21 12:48 | NUR ---
Patient was picked up for CT scan via wheel chair. patient stated had no pain, no distress was noted. patient signed consent with contrast herself for the procedure CT of chest (angio) Addendum: 11/21/21 at 1251 by DEMARCO PARHAM RN Wrong patient note
[2021-11-21 16:27] VITALS: BP 163/71
[2021-11-21] MEDS: ONDANSETRON 4 MG/2 ML VIAL IV PRN (18:30)
[2021-11-21 20:12] VITALS: BP 148/60
--- NOTE | 2021-11-21 20:30 | NUR ---
Received awake on bed with no respiratory distress noted. She is alert and oriented x2 with episodes of confusion. IV access on R hand #22 still patent and intact with ongoing IVF D5 1/2NS running at 75 ml/hr. No s/sx of infiltration on IV site. All needs attended. Call light placed within reach. Safety precautions observed. Will continue to monitor.
[2021-11-21] MEDS: METOPROLOL TARTRATE 25 MG TABLET PO SCH (20:40)
--- NOTE | 2021-11-21 22:30 | NUR ---
Consent for MRA w/ contrast and MRCP w/o contrast obtained from daughter and placed in chart.
--- NOTE | 2021-11-22 | NUR ---
IV pulled out on R hand. Inserted new IV access on RAC #20, patent and intact. Denies pain and discomfort.
[2021-11-22] MEDS: ZOLPIDEM 5 MG TABLET PO PRN (00:13)
[2021-11-22] MEDS: IV D5 1/2 NS 1000 ML 1,000 ML IV PRN ×2 (00:14→13:46)
[2021-11-22] MEDS: ACETAMINOPHEN 325 MG TABLET PO PRN (03:38)
[2021-11-22 04:15] VITALS: BP 140/50
[2021-11-22] MEDS: LEVOTHYROXINE SODIUM 112 MCG TABLET PO SCH (06:07)
[2021-11-22] MEDS: PANTOPRAZOLE SODIUM 40 MG TABLET.DR PO SCH (06:07)
--- NOTE | 2021-11-22 06:46 | NUR ---
Pt slept intermittently with episodes of confusion, taking off her hospital gown/diaper. IV access on RAC still patent and intact. All needs attended. Safety precautions observed. Call light placed within reach. Will endorse to incoming nurse for continuity of care.
[2021-11-22] MEDS: ENSURE WITH FIBER 237 ML LIQUID (CHOCOLATE) PO SCH ×3 (09:30→18:32)
[2021-11-22] MEDS: CARBIDOPA/LEVODOPA 25-100MG TABLET PO SCH ×3 (09:31→18:32)
[2021-11-22] MEDS: MULTIVITAMINS,THERAPEUTIC TABLET PO SCH (09:31)
[2021-11-22] MEDS: buPROPion XL 150 MG TAB.SR.24H PO SCH (09:31)
[2021-11-22] MEDS: REMEDY ESSENTIAL ZINC PASTE 113 GM TP SCH (09:34)
[2021-11-22] MEDS: METOPROLOL TARTRATE 25 MG TABLET PO SCH (09:44)
--- NOTE | 2021-11-22 09:50 | NUR ---
Pt is a/o x 2, confused. Pt is independent with oral hygiene. No signs of acute distress, comfort measures provided, call light within reach, will continue to monitor.
[2021-11-22 12:08] VITALS: BP 150/61
[2021-11-22] MEDS ORDERED: MAGN400O6 PO ×2 (16:06→21:07)
[2021-11-22] MEDS ORDERED: MENT113O TP (16:06)
[2021-11-22] MEDS ORDERED: METO25TA6 PO ×2 (16:06→21:07)
[2021-11-22] MEDS ORDERED: ZOLP5TAB2 PO ×2 (16:06→21:07)
[2021-11-22] MEDS ORDERED: PANT40TA49 PO ×2 (16:06→21:07)
[2021-11-22] MEDS ORDERED: ACET325T53 PO (16:06)
[2021-11-22] MEDS ORDERED: LEVO112T5 PO ×2 (16:06→21:07)
[2021-11-22] MEDS ORDERED: Lactose-Free Food/Fiber PO (16:06)
[2021-11-22 16:12] VITALS: BP 153/66
--- NOTE | 2021-11-22 18:33 | NUR ---
Pt has been discharged as a medical surgical patient and will be admitted to [facility] acute rehab unit. Pt is a/o x 2, confused. Pt is to be NPO after midnight for MRI tomorrow morning at 0800. Family is aware. No acute signs of distress, pt had some portion of dinner and few spoons of jello and and pudding. tolerated well. Family at bedside.
[2021-11-22] MEDS ORDERED: METOPROLOL TARTRATE 25 MG TABLET PO SCH (21:00)
[2021-11-22] MEDS ORDERED: BISA10SU11 RC (21:07)
[2021-11-22] MEDS ORDERED: LACT-48 PO (21:07)
[2021-11-22] MEDS ORDERED: MULT-594 PO (21:07)
[2021-11-22] MEDS ORDERED: BUPR-96 PO (21:07)
[2021-11-22] MEDS ORDERED: MENT113O TOP (21:07)
[2021-11-22] MEDS ORDERED: CARB1TAB21 PO (21:07)
[2021-11-22] MEDS ORDERED: ACET-2154 PO (21:07)
== END 2021-11-22 18:30 | DRG 390 ==
LOC: ER 15:47 → MEDSURG3 20:17
PROVIDERS: ADMIT Internal Medicine; ATTEND Internal Medicine
PROC: 05H533Z Insertion of Infusion Device into Right Subclavian Vein, Percutaneous Approach (ICD-10-PCS; principal; 2021-11-19)
PROC: B546ZZA Ultrasonography of Right Subclavian Vein, Guidance (ICD-10-PCS; 2021-11-19)
DX: K56.41 Fecal impaction (principal); R62.7 Adult failure to thrive; E86.0 Dehydration; Z68.20 Body mass index [BMI] 20.0-20.9, adult; G20 Parkinson's disease; F02.80 Dementia in other diseases classified elsewhere, unspecified severity, without behavioral disturbance, psychotic disturbance, mood disturbance, and anxiety; D69.6 Thrombocytopenia, unspecified; E03.9 Hypothyroidism, unspecified; G89.29 Other chronic pain; K21.9 Gastro-esophageal reflux disease without esophagitis; M19.90 Unspecified osteoarthritis, unspecified site; Z20.822 Contact with and (suspected) exposure to COVID-19; Z87.01 Personal history of pneumonia (recurrent); Z79.899 Other long term (current) drug therapy; Z87.891 Personal history of nicotine dependence; Z88.0 Allergy status to penicillin; Z88.2 Allergy status to sulfonamides; R53.1 Weakness; F32.A Depression, unspecified; Z86.19 Personal history of other infectious and parasitic diseases; D86.0 Sarcoidosis of lung; E05.90 Thyrotoxicosis, unspecified without thyrotoxic crisis or storm; J47.9 Bronchiectasis, uncomplicated; F10.21 Alcohol dependence, in remission; N32.3 Diverticulum of bladder; I45.10 Unspecified right bundle-branch block; R74.8 Abnormal levels of other serum enzymes; Z90.710 Acquired absence of both cervix and uterus; C80.1 Malignant (primary) neoplasm, unspecified
CPT/HCPCS: 36415; 70450; 71045; 71260; 82378; 83550; 83690; 83735; 84100; 84156; 84300; 84443; 84480; 84484; 85025; 86301; 87086; 93005; 97161; A4663; G0378; J2405; J7040; Q9967

== ENCOUNTER 2021-11-22 20:34 | Inpatient (IN) | payer MEDICARE, BC ==
[~2021-11-22] VITALS: Ht 154.9 cm; Wt 53.6 kg
[~2021-11-22 20:34] MED LIST changes: +ACET-73 PO; +ACET325T53 PO; +BUPR-96 PO; +CARB1TAB21 PO; +FAMO40TA7 PO; +FERR325T28 PO; +LEVO112T5 PO; +LEVO150T8 PO; -LEVO50TA8 PO; +Lactose-Free Food/Fiber PO; +MAGN400O6 PO; +MENT113O TP; +METO25TA6 PO; +MULT-594 PO; +PANT40TA49 PO; +ZOLP5TAB2 PO
[2021-11-22] MEDS ORDERED: REMEDY ESSENTIAL ZINC PASTE 113 GM TOP PRN (20:45)
[2021-11-22 20:51] VITALS: BP 158/76
--- NOTE | 2021-11-22 21:00 | NUR ---
Admitted pt to ARU from [facility], she is alert and oriented x2 with episodes of confusion. On room air, no respiratory distress noted. IV acces on RAC #20 patent and intact, flushed with NS. Initial and full body assessment done with pictures taken and placed in chart. Dr. Bettencourt made aware of admission and DEXTER Bowman will do med recon. MRSA swab done and sent to lab. All needs attended. Call light placed within reach. Safety precautions observed. Will continue to monitor.
[2021-11-22] MEDS ORDERED: BUPR-96 PO (21:07)
[2021-11-22] MEDS ORDERED: MENT113O TOP (21:07)
[2021-11-22] MEDS ORDERED: PANT40TA49 PO (21:07)
[2021-11-22] MEDS ORDERED: LACT-48 PO (21:07)
[2021-11-22] MEDS ORDERED: BISA10SU11 RC (21:07)
[2021-11-22] MEDS ORDERED: ACET-2154 PO (21:07)
[2021-11-22] MEDS ORDERED: LEVO112T5 PO (21:07)
[2021-11-22] MEDS ORDERED: METO25TA6 PO (21:07)
[2021-11-22] MEDS ORDERED: MULT-594 PO (21:07)
[2021-11-22] MEDS ORDERED: ZOLP5TAB2 PO (21:07)
[2021-11-22] MEDS ORDERED: MAGN400O6 PO (21:07)
[2021-11-22] MEDS ORDERED: CARB1TAB21 PO (21:07)
[2021-11-22 21:40] VITALS: BP 136/70
[2021-11-22] MEDS ORDERED: ACETAMINOPHEN 325 MG TABLET-SA PATIENTS-PAIN ONLY PO PRN (22:30)
[2021-11-22] MEDS ORDERED: BISACODYL 10 MG SUPP.RECT RC SCH (22:30)
[2021-11-22] MEDS ORDERED: ZOLPIDEM 5 MG TABLET PO SCH (22:30)
--- NOTE | 2021-11-22 23:00 | NUR ---
Pt will have MRA abdomen w/ contrast and MRCP w/o contrast tomorrow am standing order from IFTIKHAR clarke post midnight. Addendum: 11/23/21 at 0634 by GRACE BANGURA RN Consents obtained from daughter and placed in chart
[2021-11-23 04:41] VITALS: BP 156/72
[2021-11-23] MEDS ORDERED: BISACODYL 10 MG SUPP.RECT RC PRN (05:08)
[2021-11-23] MEDS ORDERED: ZOLPIDEM 5 MG TABLET PO PRN (05:10)
--- NOTE | 2021-11-23 05:40 | NUR ---
IV access on RAC noted to be leaking. Reinserted a new one on LAC #20, patent and intact, flushed with NS.
[2021-11-23] MEDS: LEVOTHYROXINE SODIUM 112 MCG TABLET PO SCH (06:02)
[2021-11-23 06:22] VITALS: BP 148/78
--- NOTE | 2021-11-23 06:45 | NUR ---
Pt slept intermittently throughout the night, easily arousable for care with episodes of confusion and trying to get up. All needs attended. Safety precautions observed. Will endorse to next shift.
[2021-11-23 07:32] VITALS: BP 144/66
[2021-11-23] MEDS ORDERED: CALMOSEPTINE 113 GM OINTMENT TOP SCH (09:00)
[2021-11-23] MEDS ORDERED: PANTOPRAZOLE SODIUM 40 MG TABLET.DR PO SCH (09:00)
[2021-11-23] MEDS: buPROPion XL 150 MG TAB.SR.24H PO SCH (09:20)
[2021-11-23] MEDS: MULTIVITAMINS,THERAPEUTIC TABLET PO SCH (09:21)
[2021-11-23] MEDS: REMEDY ESSENTIAL ZINC PASTE 113 GM TP SCH ×2 (09:21→21:19)
[2021-11-23] MEDS: CARBIDOPA/LEVODOPA 25-100MG TABLET PO SCH ×3 (09:21→16:52)
[2021-11-23] MEDS: ENSURE WITH FIBER 237 ML LIQUID (CHOCOLATE) PO SCH ×3 (09:21→16:52)
[2021-11-23] MEDS: METOPROLOL TARTRATE 25 MG TABLET PO SCH ×2 (09:21→21:18)
[2021-11-23 16:00] VITALS: BP 157/73
[2021-11-23 20:26] VITALS: BP 156/72
[2021-11-24] MEDS: ACETAMINOPHEN 325 MG TABLET PO PRN (00:15)
[2021-11-24 04:36] VITALS: BP 154/69
[2021-11-24] MEDS: LEVOTHYROXINE SODIUM 112 MCG TABLET PO SCH (06:03)
[2021-11-24] MEDS: PANTOPRAZOLE SODIUM 40 MG TABLET.DR PO SCH (06:03)
--- NOTE | 2021-11-24 06:32 | NUR ---
Patient remained stable during the shift. No acute distress identified. Ambien PRN given for insomnia as ordered, effective for 1-2hrs, patient was removing her clothes, and diaper, provided privacy with sheets on. She is awake most of the night, tries to get up and sits at the edge of the bed. She is high risk for falls, unaware of safety measures. Frequent visual checks done, bed alarm on. Aspiration precaution maintained. Patient denies discomfort. All needs attended. All due meds given. kept call light within reach. turned and repositioned. will endorse to the next shift for continuity of care.
[2021-11-24 06:36] LABS: HEMATOCRIT 35.7 % (31.2-41.9); MEAN CORPUSCULAR VOLUME 85.6 fL (75.5-95.3); PLATELET COUNT (AUTO) 178 K/uL (179-408)
[2021-11-24 07:23] LABS: BILIRUBIN,TOTAL 0.4 mg/dL (0.2-1.0); CREATININE 0.8 mg/dL (0.6-1.3); TOTAL PROTEIN, SERUM 7.2 g/dL (6.4-8.2)
[2021-11-24 08:29] LABS: *RHEUMATOID FACTOR SCREEN NEGATIVE (NEGATIVE)
[2021-11-24] MEDS: CARBIDOPA/LEVODOPA 25-100MG TABLET PO SCH ×3 (08:38→18:02)
[2021-11-24] MEDS: METOPROLOL TARTRATE 25 MG TABLET PO SCH (08:38)
[2021-11-24] MEDS: buPROPion XL 150 MG TAB.SR.24H PO SCH (08:38)
[2021-11-24] MEDS: MULTIVITAMINS,THERAPEUTIC TABLET PO SCH (08:38)
[2021-11-24] MEDS: ENSURE WITH FIBER 237 ML LIQUID (CHOCOLATE) PO SCH ×3 (08:40→18:02)
[2021-11-24] MEDS: REMEDY ESSENTIAL ZINC PASTE 113 GM TP SCH ×2 (08:40→22:15)
[2021-11-24] MEDS ORDERED: METOPROLOL TARTRATE 25 MG TABLET PO ONE (09:37)
[2021-11-24 09:38] VITALS: BP 189/83
[2021-11-24] MEDS: DRONABINOL 2.5 MG CAPSULE PO SCH ×2 (10:09→18:02)
[2021-11-24] MEDS: ALPRAZOLAM 0.5 MG TABLET PO PRN (18:02)
[2021-11-24 18:10] VITALS: BP 157/72
--- NOTE | 2021-11-24 19:15 | NUR ---
Received patient on bed, awake, in calm behavior, no signs of respiratory distress, denies pain at this time, alert 2-3 forgetful. Safety precautions provided, call light placed within reach.
[2021-11-24] MEDS ORDERED: hydrALAZINE HCL 25 MG TABLET PO PRN (20:00)
[2021-11-24 20:18] VITALS: BP 134/88
[2021-11-24] MEDS: METOPROLOL TARTRATE 50 MG TABLET PO SCH (22:06)
[2021-11-24] MEDS: TEMAZEPAM 15 MG CAPSULE PO SCH (22:08)
--- NOTE | 2021-11-24 22:50 | NUR ---
Patient incontinent, straight catheterization done, urine sample obtained and sent to lab for urine profile as ordered.
[2021-11-25 01:26] LABS: *BILIRUBIN,URIN NEGATIVE (NEGATIVE); *BLOOD, URINE NEGATIVE (NEGATIVE); *CLARITY,URINE CLEAR (CLEAR); *COLOR,URINE YELLOW (YELLOW); *KETONES,URINE NEGATIVE (NEGATIVE); *UROBILINOGEN,URINE 0.2 E.U./dl (NORMAL); LEUKOCYTE ESTERASE ,URINE NEGATIVE (NEGATIVE); NITRITE, URINE NEGATIVE (NEGATIVE); PH,URINE 5.5 (5.0-8.0); UGLUCOSE NEGATIVE (NEGATIVE)
[2021-11-25 04:18] VITALS: BP 125/82
--- NOTE | 2021-11-25 06:00 | NUR ---
Slept well, in calm behavior when awake. Vitally stable, no compliant of pain, no shortness of breath.
[2021-11-25] MEDS: LEVOTHYROXINE SODIUM 112 MCG TABLET PO SCH (06:22)
[2021-11-25] MEDS: PANTOPRAZOLE SODIUM 40 MG TABLET.DR PO SCH (06:22)
[2021-11-25] MEDS ORDERED: GADOTERATE MEGLUMINE 10 MMOL/20 ML VIAL IV ONE (06:48)
[2021-11-25 07:30] VITALS: BP 131/62
[2021-11-25] MEDS: DRONABINOL 2.5 MG CAPSULE PO SCH ×2 (09:29→17:29)
[2021-11-25] MEDS: METOPROLOL TARTRATE 50 MG TABLET PO SCH ×2 (09:29→21:23)
[2021-11-25] MEDS: CARBIDOPA/LEVODOPA 25-100MG TABLET PO SCH ×3 (09:29→17:29)
[2021-11-25] MEDS: buPROPion XL 150 MG TAB.SR.24H PO SCH (09:29)
[2021-11-25] MEDS: MULTIVITAMINS,THERAPEUTIC TABLET PO SCH (09:29)
[2021-11-25] MEDS: ENSURE WITH FIBER 237 ML LIQUID (CHOCOLATE) PO SCH ×3 (09:30→17:29)
[2021-11-25] MEDS: REMEDY ESSENTIAL ZINC PASTE 113 GM TP SCH ×2 (09:30→21:42)
[2021-11-25 11:12] LABS: *IMMUNOGLOBULIN G, SERUM 808 mg/dL (586-1602); IMMUNOGLOBULIN A, SERUM 57 mg/dL (64-422); IMMUNOGLOBULIN M, SERUM 63 mg/dL (26-217)
--- NOTE | 2021-11-25 14:00 | NUR ---
Pts daughter observed pt's behavior about periods of hallucinations. ie Pt's seeing dogs and thinks that she is not in the hospital.
--- NOTE | 2021-11-25 14:40 | NUR ---
INDIVIDUALIZED PLAN OF CARE
[2021-11-25 16:00] VITALS: BP 144/55
[2021-11-25] MEDS: ALPRAZOLAM 0.5 MG TABLET PO PRN (18:30)
[2021-11-25 20:18] VITALS: BP 152/67
[2021-11-25] MEDS: FERROUS SULFATE 325 MG TABEC PO SCH (21:22)
[2021-11-25] MEDS: TEMAZEPAM 15 MG CAPSULE PO SCH (21:22)
--- NOTE | 2021-11-25 21:22 | NUR ---
Restoril medication unscannable, enter manually.
[2021-11-26 04:15] VITALS: BP 151/70
--- NOTE | 2021-11-26 04:23 | NUR ---
Patient awake, no sob no chest pain, no complain of pain, rendered good francesca care due to incontinence, offered to go the toilet but patient wet the pad already, cont to offer to go to the toilet,patient tolerate activity, cont to monitor.
[2021-11-26] MEDS: LEVOTHYROXINE SODIUM 112 MCG TABLET PO SCH (06:08)
[2021-11-26] MEDS: PANTOPRAZOLE SODIUM 40 MG TABLET.DR PO SCH (06:08)
[2021-11-26 07:33] VITALS: BP 173/65
[2021-11-26 08:06] LABS: HEPATITIS B SURFACE AG Negative (Negative)
--- NOTE | 2021-11-26 08:18 | NUR ---
Pt blood pressure elevated at 173/65 HR 68. Administering routine BP medications, will reassess to determine if PRN needed.
[2021-11-26] MEDS: buPROPion XL 150 MG TAB.SR.24H PO SCH (09:23)
[2021-11-26] MEDS: METOPROLOL TARTRATE 50 MG TABLET PO SCH ×2 (09:23→21:30)
[2021-11-26] MEDS: DRONABINOL 2.5 MG CAPSULE PO SCH ×2 (09:23→16:08)
[2021-11-26] MEDS: MULTIVITAMINS,THERAPEUTIC TABLET PO SCH (09:23)
[2021-11-26] MEDS: CARBIDOPA/LEVODOPA 25-100MG TABLET PO SCH ×3 (09:23→16:08)
[2021-11-26] MEDS: REMEDY ESSENTIAL ZINC PASTE 113 GM TP SCH ×2 (09:24→21:30)
[2021-11-26] MEDS: ENSURE WITH FIBER 237 ML LIQUID (CHOCOLATE) PO SCH ×3 (09:24→16:08)
[2021-11-26 12:06] LABS: *ANTI-SCLERODERMA-70 AB <0.2 AI (0.0-0.9); *SJOGREN'S ANTI-SS-A <0.2 AI (0.0-0.9); *SJOGREN'S ANTI-SS-B <0.2 AI (0.0-0.9); *SMITH ANTIBODIES <0.2 AI (0.0-0.9); ANTI-DNA(DS) AB, QN <1 IU/mL (0-9)
[2021-11-26 12:42] VITALS: BP 121/50
--- NOTE | 2021-11-26 12:43 | NUR ---
Pt is awake alert and oriented x 2-3. Pt is eating some of her meals, reported better consumption from family in comparison to before. BP decreased, 121/50 hr 68. No need for PRN BP medication anymore. Family at bedside helping with meals. Comfort measures provided, call light within reach, will continue to monitor.
[2021-11-26 15:55] VITALS: BP 146/54
[2021-11-26 16:06] LABS: A/G RATIO 1.1 (0.7-1.7); ALBUMIN 3.4 g/dL (2.9-4.4); ALPHA-1-GLOBULIN 0.3 g/dL (0.0-0.4); ALPHA-2-GLOBULIN 1.1 g/dL (0.4-1.0); BETA GLOBULIN 0.8 g/dL (0.7-1.3); GAMMA GLOBULIN 0.9 g/dL (0.4-1.8); GLOBULIN, TOTAL 3.2 g/dL (2.2-3.9); M-SPIKE Not Observed g/dL (Not Observed)
--- NOTE | 2021-11-26 19:50 | NUR ---
Received patient in bed, no sob no chest pain, no complain of pain, BP slightly elevated, will recheck again, kept clean and dry, asymptomatic, cont to monitor.
[2021-11-26] MEDS: FERROUS SULFATE 325 MG TABEC PO SCH (21:21)
[2021-11-26] MEDS: TEMAZEPAM 15 MG CAPSULE PO SCH (21:23)
--- NOTE | 2021-11-27 04:44 | NUR ---
Patient awake, sleep intermittently, will sleep for 2 hours then awake, no complain of pain, no sob. Encourage patient to try to sleep so she will feel rested in the morning, but ineffective, frequent visual check done, risk for fall and injury, had multiple attempt of getting out of bed, cont to monitor. kept clean and dry, call light within reach.
[2021-11-27 04:52] VITALS: BP 154/54
[2021-11-27] MEDS: PANTOPRAZOLE SODIUM 40 MG TABLET.DR PO SCH (06:04)
[2021-11-27] MEDS: LEVOTHYROXINE SODIUM 112 MCG TABLET PO SCH (06:04)
[2021-11-27 07:33] VITALS: BP 146/62
[2021-11-27 09:19] LABS: HEMATOCRIT 35.5 % (31.2-41.9); MEAN CORPUSCULAR HEMOGLOBIN 29.3 uug (24.7-32.8); MEAN CORPUSCULAR VOLUME 85.3 fL (75.5-95.3); PLATELET COUNT (AUTO) 212 K/uL (179-408)
[2021-11-27 09:21] LABS: CREATININE 0.9 mg/dL (0.6-1.3); POTASSIUM 4.1 mmol/L (3.5-5.1)
[2021-11-27] MEDS: METOPROLOL TARTRATE 50 MG TABLET PO SCH ×2 (09:45→20:30)
[2021-11-27] MEDS: ENSURE WITH FIBER 237 ML LIQUID (CHOCOLATE) PO SCH ×3 (09:45→16:36)
[2021-11-27] MEDS: DRONABINOL 2.5 MG CAPSULE PO SCH ×2 (09:45→16:36)
[2021-11-27] MEDS: CARBIDOPA/LEVODOPA 25-100MG TABLET PO SCH ×3 (09:45→16:36)
[2021-11-27] MEDS: buPROPion XL 150 MG TAB.SR.24H PO SCH (09:46)
[2021-11-27] MEDS: MULTIVITAMINS,THERAPEUTIC TABLET PO SCH (09:46)
[2021-11-27] MEDS: REMEDY ESSENTIAL ZINC PASTE 113 GM TP SCH ×2 (09:46→20:33)
--- NOTE | 2021-11-27 10:16 | NUR ---
INTERDISCIPLINARY TEAM CONFERENCE
--- NOTE | 2021-11-27 11:27 | NUR ---
Pt is awake alert and oriented x 1-2.With periods of confusion. Respirations even and unlabored no SOB noted at RA. Pt is encourage to eat some of her meals, Friend at bedside helping with meals. Up in W/C with PT had a shower with OT Comfort and safety measures provided, call light within reach,bed alarm on will continue to monitor closely.
[2021-11-27 16:00] VITALS: BP 115/48
[2021-11-27] MEDS: MAGNESIUM HYDROXIDE 30 ML LIQUID UDC PO PRN (16:37)
[2021-11-27 20:14] VITALS: BP 133/58
[2021-11-27] MEDS: FERROUS SULFATE 325 MG TABEC PO SCH (20:30)
[2021-11-27] MEDS: TEMAZEPAM 15 MG CAPSULE PO SCH (20:31)
[2021-11-28] MEDS: ACETAMINOPHEN 325 MG TABLET PO PRN (04:23)
[2021-11-28 04:27] VITALS: BP 171/60
--- NOTE | 2021-11-28 06:13 | NUR ---
Patient in no acute distress.Compliant with medication.Restoril given. Slept for few hours,incontinent .Pericare provided. Tries to get up and was removing clothes.Confused and forgetful ,able to redirect. Reinforce teaching regarding safety measures. All needs anticipated. kept call light within reach. will endorse to the next shift for continuity of care.
[2021-11-28] MEDS: PANTOPRAZOLE SODIUM 40 MG TABLET.DR PO SCH (06:14)
[2021-11-28] MEDS: LEVOTHYROXINE SODIUM 112 MCG TABLET PO SCH (06:14)
[2021-11-28 08:00] VITALS: BP 132/62
[2021-11-28] MEDS: ENSURE WITH FIBER 237 ML LIQUID (CHOCOLATE) PO SCH ×3 (09:18→16:23)
[2021-11-28] MEDS: REMEDY ESSENTIAL ZINC PASTE 113 GM TP SCH ×2 (09:19→20:41)
[2021-11-28] MEDS: CARBIDOPA/LEVODOPA 25-100MG TABLET PO SCH ×3 (09:19→16:23)
[2021-11-28] MEDS: buPROPion XL 150 MG TAB.SR.24H PO SCH (09:19)
[2021-11-28] MEDS: METOPROLOL TARTRATE 50 MG TABLET PO SCH ×2 (09:19→20:39)
[2021-11-28] MEDS: MULTIVITAMINS,THERAPEUTIC TABLET PO SCH (09:19)
[2021-11-28] MEDS: DRONABINOL 2.5 MG CAPSULE PO SCH ×2 (09:19→16:23)
[2021-11-28] MEDS: MAGNESIUM HYDROXIDE 30 ML LIQUID UDC PO PRN (10:57)
[2021-11-28 16:10] VITALS: BP 97/45
--- NOTE | 2021-11-28 16:28 | NUR ---
Receive Patient awake, alert O 2-3 no sob , no complain of pain, rendered good francesca care rendered incontinent of B&B , offered to go the toilet with PT, had BM X 1, Up with PT /OT patient tolerate activity well, cont to monitor for comfort and safety.
[2021-11-28 20:12] VITALS: BP 140/66
[2021-11-28] MEDS: FERROUS SULFATE 325 MG TABEC PO SCH (20:38)
[2021-11-28] MEDS: TEMAZEPAM 15 MG CAPSULE PO SCH (20:40)
[2021-11-28] MEDS: ALPRAZOLAM 0.5 MG TABLET PO PRN (22:35)
[2021-11-29 04:12] VITALS: BP 120/64
--- NOTE | 2021-11-29 05:23 | NUR ---
Received to care, lying in bed, pleasant, but confused, disrobing and attempting to get out of bed frequently, asking to go home, requiring frequent redirection, and close monitoring for safety. Bed alarm armed, but staff still needed to sit outside her door most of the night, to ensure safety. PRN Restoril was given for insomnia at bedtime, but she remained restless and agitated. PRN Xanax was given at 2235, and she finally went to sleep, but had a few periods during the night that she was awake. As of now, she remains asleep. No distress, noted.
[2021-11-29] MEDS: PANTOPRAZOLE SODIUM 40 MG TABLET.DR PO SCH (06:10)
[2021-11-29] MEDS: LEVOTHYROXINE SODIUM 112 MCG TABLET PO SCH (06:10)
[2021-11-29 08:23] VITALS: BP 112/71
[2021-11-29] MEDS: MULTIVITAMINS,THERAPEUTIC TABLET PO SCH (09:09)
[2021-11-29] MEDS: buPROPion XL 150 MG TAB.SR.24H PO SCH (09:09)
[2021-11-29] MEDS: DRONABINOL 2.5 MG CAPSULE PO SCH ×2 (09:09→17:10)
[2021-11-29] MEDS: CARBIDOPA/LEVODOPA 25-100MG TABLET PO SCH ×3 (09:09→17:10)
[2021-11-29] MEDS: METOPROLOL TARTRATE 50 MG TABLET PO SCH ×2 (09:11→20:25)
[2021-11-29] MEDS: ENSURE WITH FIBER 237 ML LIQUID (CHOCOLATE) PO SCH ×3 (09:11→17:50)
[2021-11-29] MEDS: REMEDY ESSENTIAL ZINC PASTE 113 GM TP SCH ×2 (13:20→20:25)
[2021-11-29 15:56] LABS: THYROID STIMULATING HORMONE 0.026 mIU/mL (0.358-3.740)
[2021-11-29 16:26] VITALS: BP 126/68
[2021-11-29 20:11] VITALS: BP 134/57
[2021-11-29] MEDS: FERROUS SULFATE 325 MG TABEC PO SCH (20:24)
[2021-11-29] MEDS: ALPRAZOLAM 0.5 MG TABLET PO PRN (20:24)
[2021-11-29] MEDS: TEMAZEPAM 15 MG CAPSULE PO SCH (21:33)
[2021-11-30 04:57] VITALS: BP 127/84
[2021-11-30] MEDS: PANTOPRAZOLE SODIUM 40 MG TABLET.DR PO SCH (06:07)
[2021-11-30] MEDS: LEVOTHYROXINE SODIUM 112 MCG TABLET PO SCH (06:07)
[2021-11-30 08:05] VITALS: BP 143/80
[2021-11-30] MEDS: MULTIVITAMINS,THERAPEUTIC TABLET PO SCH (10:14)
[2021-11-30] MEDS: DRONABINOL 2.5 MG CAPSULE PO SCH ×2 (10:14→17:53)
[2021-11-30] MEDS: METOPROLOL TARTRATE 50 MG TABLET PO SCH ×2 (10:14→21:03)
[2021-11-30] MEDS: CARBIDOPA/LEVODOPA 25-100MG TABLET PO SCH ×3 (10:14→17:53)
[2021-11-30] MEDS: buPROPion XL 150 MG TAB.SR.24H PO SCH (10:14)
[2021-11-30] MEDS: ENSURE WITH FIBER 237 ML LIQUID (CHOCOLATE) PO SCH ×3 (10:15→17:54)
[2021-11-30] MEDS: REMEDY ESSENTIAL ZINC PASTE 113 GM TP SCH ×2 (10:15→21:15)
--- NOTE | 2021-11-30 10:15 | NUR ---
PT JUST CAME BACK FROM SHOWER. PT TOLERATED PHYSICAL THERAPY WELL.NO PAIN COMPLAIN. NO SOB. FAMILIES ON BEDSIDE. GAVE AM MEDS.
[2021-11-30 16:03] VITALS: BP 143/52
--- NOTE | 2021-11-30 19:00 | NUR ---
Received patient on bed, awake, no signs of respiratory distress, no complaint of pain. Safety precautions provided, call light placed within reach.
[2021-11-30 20:20] VITALS: BP 132/58
[2021-11-30] MEDS: FERROUS SULFATE 325 MG TABEC PO SCH (21:03)
[2021-11-30] MEDS: TEMAZEPAM 15 MG CAPSULE PO SCH (21:04)
[2021-11-30] MEDS: ALPRAZOLAM 0.5 MG TABLET PO PRN (21:05)
[2021-12-01 04:29] VITALS: BP 155/60
[2021-12-01] MEDS: PANTOPRAZOLE SODIUM 40 MG TABLET.DR PO SCH (06:16)
[2021-12-01] MEDS: METOPROLOL TARTRATE 50 MG TABLET PO SCH ×2 (06:16→21:48)
[2021-12-01] MEDS: LEVOTHYROXINE SODIUM 112 MCG TABLET PO SCH (06:16)
--- NOTE | 2021-12-01 06:35 | NUR ---
Slept intermittently, no complaint of pain, incontinent with bladder, BP 155/60 HR-76, Metoprolol PO given earlier as scheduled. For continuity of care.
[2021-12-01 08:00] VITALS: BP 167/57
[2021-12-01] MEDS: ENSURE WITH FIBER 237 ML LIQUID (CHOCOLATE) PO SCH ×3 (08:38→17:21)
[2021-12-01] MEDS: buPROPion XL 150 MG TAB.SR.24H PO SCH (08:38)
[2021-12-01] MEDS: DRONABINOL 2.5 MG CAPSULE PO SCH ×2 (08:38→17:20)
[2021-12-01] MEDS: MULTIVITAMINS,THERAPEUTIC TABLET PO SCH (08:38)
[2021-12-01] MEDS: REMEDY ESSENTIAL ZINC PASTE 113 GM TP SCH ×2 (08:39→21:48)
[2021-12-01] MEDS: CARBIDOPA/LEVODOPA 25-100MG TABLET PO SCH ×3 (08:39→17:20)
[2021-12-01 16:43] VITALS: BP 138/57
[2021-12-01] MEDS: ALPRAZOLAM 0.5 MG TABLET PO PRN (17:20)
--- NOTE | 2021-12-01 17:30 | NUR ---
FAMILY AT BEDSIDE THROUGHOUT THE DAY. VERY ANXIOUS AT THIS TIME. MED. PO WITH XANAX WITH GOOD EFFECT AFTER 45 MINUTES.
[2021-12-01 20:09] VITALS: BP 117/57
[2021-12-01] MEDS: FERROUS SULFATE 325 MG TABEC PO SCH (21:49)
[2021-12-01] MEDS: TEMAZEPAM 15 MG CAPSULE PO SCH (21:50)
[2021-12-02 04:09] VITALS: BP 139/58
[2021-12-02] MEDS: PANTOPRAZOLE SODIUM 40 MG TABLET.DR PO SCH (06:30)
[2021-12-02] MEDS: LEVOTHYROXINE SODIUM 112 MCG TABLET PO SCH (06:32)
[2021-12-02 06:41] LABS: HEMATOCRIT 34.8 % (31.2-41.9); MEAN CORPUSCULAR HEMOGLOBIN 28.8 uug (24.7-32.8); MEAN CORPUSCULAR VOLUME 85.1 fL (75.5-95.3); PLATELET COUNT (AUTO) 209 K/uL (179-408)
[2021-12-02 07:33] VITALS: BP 146/62
--- NOTE | 2021-12-02 08:00 | NUR ---
AWAKE ALERT AND VERBALLY RESPONSIVE CUT WITH PERIODS OF CONFUSION, REALITY ORIENTATION GIVEN. CLOSELY MONITORED
[2021-12-02] MEDS: buPROPion XL 150 MG TAB.SR.24H PO SCH (08:25)
[2021-12-02] MEDS: ALPRAZOLAM 0.5 MG TABLET PO PRN ×2 (08:25→20:01)
[2021-12-02] MEDS: MULTIVITAMINS,THERAPEUTIC TABLET PO SCH (08:26)
[2021-12-02] MEDS: ENSURE WITH FIBER 237 ML LIQUID (CHOCOLATE) PO SCH ×3 (08:26→17:05)
[2021-12-02] MEDS: DRONABINOL 2.5 MG CAPSULE PO SCH ×2 (08:26→17:05)
[2021-12-02] MEDS: METOPROLOL TARTRATE 50 MG TABLET PO SCH ×2 (08:26→21:23)
[2021-12-02] MEDS: REMEDY ESSENTIAL ZINC PASTE 113 GM TP SCH (08:27)
[2021-12-02] MEDS: CARBIDOPA/LEVODOPA 25-100MG TABLET PO SCH ×3 (08:27→17:05)
--- NOTE | 2021-12-02 12:00 | NUR ---
NO ACUTE CHANGE FROM MORNING ASSESSMENT
[2021-12-02 15:50] VITALS: BP 132/60
--- NOTE | 2021-12-02 16:20 | NUR ---
CONTINUE REHAH STATUS TILL FURTHER ORDERED, SEE NOTES
--- NOTE | 2021-12-02 19:30 | NUR ---
Patient awake but forgetful, no sob no chest pain. Patient has episode of anxiety, moving around her bed, family at bedside, reorient patient, will medicate for anxiety. cont to monitor.
[2021-12-02 20:00] VITALS: BP 167/72
[2021-12-02] MEDS: FERROUS SULFATE 325 MG TABEC PO SCH (21:21)
[2021-12-02] MEDS: TEMAZEPAM 15 MG CAPSULE PO SCH (21:22)
--- NOTE | 2021-12-02 21:25 | NUR ---
Patient given Restoril po as ordered, patient sleep for few minutes then wake up, then back to sleep. Patient kept clean dry and cmfortable. Patient has episode of removing clothings, frquent visual checks done. cont to monitor.
[2021-12-03] MEDS: REMEDY ESSENTIAL ZINC PASTE 113 GM TP SCH ×3 (02:27→20:32)
[2021-12-03 04:00] VITALS: BP 105/63
[2021-12-03] MEDS: PANTOPRAZOLE SODIUM 40 MG TABLET.DR PO SCH (06:10)
[2021-12-03] MEDS: LEVOTHYROXINE SODIUM 112 MCG TABLET PO SCH (06:11)
--- NOTE | 2021-12-03 06:25 | NUR ---
Patient asleep but arousable, no complain of pain, encourage to urinate in the toilet, rendered good francesca care, cont to monitor.
--- NOTE | 2021-12-03 07:05 | NUR ---
received patient resting in bed with eyes closed no ss of pain or distress. will continue rehab as planned
[2021-12-03 08:00] VITALS: BP 152/48
[2021-12-03] MEDS: DRONABINOL 2.5 MG CAPSULE PO SCH ×2 (08:48→16:46)
[2021-12-03] MEDS: MULTIVITAMINS,THERAPEUTIC TABLET PO SCH (08:48)
[2021-12-03] MEDS: buPROPion XL 150 MG TAB.SR.24H PO SCH (08:48)
[2021-12-03] MEDS: METOPROLOL TARTRATE 50 MG TABLET PO SCH ×2 (08:49→20:31)
[2021-12-03] MEDS: CARBIDOPA/LEVODOPA 25-100MG TABLET PO SCH ×3 (08:49→16:46)
[2021-12-03] MEDS: ENSURE WITH FIBER 237 ML LIQUID (CHOCOLATE) PO SCH ×3 (08:51→16:46)
--- NOTE | 2021-12-03 13:00 | NUR ---
NO ACUTE CHANGE FROM MORNING ASSESSMENT
[2021-12-03 16:00] VITALS: BP 149/60
--- NOTE | 2021-12-03 17:18 | NUR ---
ERM[facility]IN[facility] DISCHARGE IN AM WITH HOME HEALTH FOLLOW-UP
[2021-12-03 20:00] VITALS: BP 155/54
[2021-12-03] MEDS: FERROUS SULFATE 325 MG TABEC PO SCH (20:31)
[2021-12-03] MEDS: TEMAZEPAM 15 MG CAPSULE PO SCH (20:33)
[2021-12-03] MEDS: ALPRAZOLAM 0.5 MG TABLET PO PRN (21:13)
--- NOTE | 2021-12-04 04:12 | NUR ---
AAOx1. Confused and disoriented. Easily redirected. VSS. OOB to the BR with supervision. Voiding well.All due meds given as directed. Will monitor patient.
[2021-12-04] MEDS: LEVOTHYROXINE SODIUM 112 MCG TABLET PO SCH (06:31)
[2021-12-04] MEDS: PANTOPRAZOLE SODIUM 40 MG TABLET.DR PO SCH (06:31)
[2021-12-04 08:00] VITALS: BP 151/59
[2021-12-04] MEDS: buPROPion XL 150 MG TAB.SR.24H PO SCH (08:12)
[2021-12-04] MEDS: DRONABINOL 2.5 MG CAPSULE PO SCH (08:12)
[2021-12-04] MEDS: REMEDY ESSENTIAL ZINC PASTE 113 GM TP SCH (08:12)
[2021-12-04] MEDS: MULTIVITAMINS,THERAPEUTIC TABLET PO SCH (08:12)
[2021-12-04] MEDS: CARBIDOPA/LEVODOPA 25-100MG TABLET PO SCH ×2 (08:12→13:01)
[2021-12-04] MEDS: METOPROLOL TARTRATE 50 MG TABLET PO SCH (08:13)
[2021-12-04] MEDS: ENSURE WITH FIBER 237 ML LIQUID (CHOCOLATE) PO SCH ×2 (08:13→13:01)
[2021-12-04] MEDS ORDERED: AMLODIPINE 5 MG TABLET PO SCH (09:00)
--- NOTE | 2021-12-04 15:10 | NUR ---
Pt was discharge home with home health services. All discharge notes ,instructions and teaching given to her daughter , personal belongings given to personal care attendant , ID band was removed pt was taken via W/C to the lobby by one of the staff she left in stable condition. left with her daughter Doris in a private car.
[2021-12-04 15:58] VITALS: BP 147/59
== END 2021-12-04 15:10 | disposition home health service (06) | DRG 56 ==
LOC: MERGE 20:34
PROVIDERS: ADMIT Physical Medicine & Rehabilitation Pain Medicine; ATTEND Physical Medicine & Rehabilitation Pain Medicine
DX: G20 Parkinson's disease (principal); N17.0 Acute kidney failure with tubular necrosis; J21.9 Acute bronchiolitis, unspecified; J47.0 Bronchiectasis with acute lower respiratory infection; R53.1 Weakness; D69.6 Thrombocytopenia, unspecified; D86.0 Sarcoidosis of lung; E03.9 Hypothyroidism, unspecified; G89.29 Other chronic pain; K21.9 Gastro-esophageal reflux disease without esophagitis; M19.90 Unspecified osteoarthritis, unspecified site; R62.7 Adult failure to thrive; Z88.0 Allergy status to penicillin; Z88.2 Allergy status to sulfonamides; H53.2 Diplopia; I10 Essential (primary) hypertension; K56.41 Fecal impaction; N32.3 Diverticulum of bladder; Z20.822 Contact with and (suspected) exposure to COVID-19; Z87.01 Personal history of pneumonia (recurrent); F41.9 Anxiety disorder, unspecified; Z87.891 Personal history of nicotine dependence; Z90.710 Acquired absence of both cervix and uterus; Z86.19 Personal history of other infectious and parasitic diseases; E05.90 Thyrotoxicosis, unspecified without thyrotoxic crisis or storm; R10.9 Unspecified abdominal pain; R11.0 Nausea; E86.0 Dehydration; F02.80 Dementia in other diseases classified elsewhere, unspecified severity, without behavioral disturbance, psychotic disturbance, mood disturbance, and anxiety; R13.10 Dysphagia, unspecified
CPT/HCPCS: 36415; 70450; 82747; 82784; 84155; 84165; 84443; 85014; 85025; 86038; 86140; 86334; 86430; 86704; 86706; 86803; 87340; 97161; 97535-GO-CO; A9575; Q0167